=== PATIENT | female | born 1995 | race Caucasian/White ===

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

== ENCOUNTER 2022-01-02 10:33 | Emergency (ER) | payer OTHER ==
[~2022-01-02] VITALS: Ht 157.5 cm; Wt 61.2 kg
[2022-01-02 11:00] VITALS: BP 117/67
[2022-01-02] MEDS ORDERED: KETOROLAC TROMETHAMINE INJ 30 MG/ML VIAL ONE (11:29)
[2022-01-02] MEDS ORDERED: DEXAMETHASONE SOLN 5 MG/5 ML UDC ONE (11:29)
[2022-01-02] MEDS ORDERED: KETOROLAC TROMETHAMINE INJ 30 MG/ML VIAL IM ONE (11:30)
[2022-01-02] MEDS ORDERED: DEXAMETHASONE SOLN 5 MG/5 ML UDC PO ONE (11:30)
[2022-01-02] MEDS ORDERED: IBUPROFEN 400 MG TABLET ONE (11:34)
[2022-01-02] MEDS ORDERED: Paxlovid PO (11:57)
[2022-01-02] MEDS ORDERED: IBUPROFEN 400 MG TABLET PO ONE (12:00)
--- NOTE | 2022-01-02 12:05 | NUR ---
Patient discharged to home in stable condition. Written and verbal after care instructions given. Patient verbalizes understanding of instruction.
== END 2022-01-02 12:06 | disposition home or self-care (01) ==
LOC: ER 10:40
DX: U07.1 COVID-19 (principal); Z79.899 Other long term (current) drug therapy
CPT/HCPCS: 71045; 99283; J8540; J1885